=== PATIENT | male | born 1985 | race African-American/Black ===

== ENCOUNTER 2016-08-06 23:18 | Emergency (ER) | payer OTHER ==
[2016-08-07 00:54] LABS: BASOPHIL 0.3 % (0-2); EOSINOPHIL 1.3 % (0-5); HCT 41.9 % (42.0-52.0); HGB 14.4 g/dl (13.2-18.0); LYMPHOCYTE 14.1 % (15-48); MCH 31.9 pg (25.0-31.0); MCHC 34.4 g/dL (32.0-36.0); MCV 92.7 fL (78.0-100.0); MONOCYTE 8.7 % (0-12); MPV 9.8 fL (6.0-9.5); NEUTROPHIL 75.6 % (41-80); PLT 284 K/uL (150-400); RBC 4.52 M/uL (4.70-6.00); RDW 12.7 % (11.5-14.0); WBC 11.6 K/uL (4.0-10.5)
== END 2016-08-07 02:54 | disposition other institution (70) ==
LOC: FER 23:18
PROVIDERS: Nurse Practitioner
DX: T84.398A Other mechanical complication of other bone devices, implants and grafts, initial encounter (principal); R26.2 Difficulty in walking, not elsewhere classified; F17.210 Nicotine dependence, cigarettes, uncomplicated
CPT/HCPCS: 36415; 73552; 73564; 73590; 85025; 86403; 87070; 87077; 87186; 87205; 99285